=== PATIENT | female | born 1995 | race Caucasian/White ===

== ENCOUNTER 2020-02-04 22:51 | Emergency (ER) | payer BC ==
[~2020-02-04] VITALS: Ht 167.6 cm; Wt 69.2 kg
[2020-02-04] MEDS ORDERED: proCHLORperazine 10 MG/2 ml inj IV ONE (23:10)
[2020-02-04] MEDS ORDERED: diphenhydrAMINE 50 mg/ml inj IV ONE (23:10)
[2020-02-04] MEDS ORDERED: ibuprofen tablet 400 MG TABLET PO ONE (23:55)
[2020-02-04 23:57] VITALS: BP 122/87
== END 2020-02-04 23:59 | disposition home or self-care (01) ==
LOC: ER 22:52 → EDBD 22:52 → ER 23:59
DX: G43.909 Migraine, unspecified, not intractable, without status migrainosus (principal)
CPT/HCPCS: 96374; 96375; 99284; J0780; J1200